=== PATIENT | female | born 1995 | race Caucasian/White ===

== ENCOUNTER 2018-07-25 22:56 | Inpatient (IN) | payer BC ==
[~2018-07-25] VITALS: Ht 157.5 cm; Wt 77.1 kg
[2018-07-25 23:09] VITALS: Ht 157.5 cm; Wt 77.1 kg
[2018-07-25 23:52] LABS: PLATELET COUNT 263 x10^3mcL (130-400)
[2018-07-25 23:53] LABS: BASOPHIL % 0 % (0-2); RED CELL DISTRIBUTION WIDTH 14.8 % (11.5-14.5)
[2018-07-26 00:09] LABS: ALBUMIN 3.6 g/dL (3.4-5.0); ALKALINE PHOSPHATASE 38 U/L (46-116); ALT/SGPT 20 U/L (14-59); AMYLASE 41 U/L (25-115); AST/SGOT 13 U/L (15-37); BILIRUBIN TOTAL 0.2 mg/dL (0.20-1.00); CALCIUM 8.5 mg/dL (8.5-10.1); CARBON DIOXIDE 25.1 mmol/L (21-32); CHLORIDE SERUM 105 mmol/L (98-107); GFR1 > 60 mL/min; GLUCOSE SERUM 98 mg/dL (74-106); LIPASE 147 IU/L (73-393); POTASSIUM SERUM 4.4 mmol/L (3.5-5.1); SODIUM SERUM 139 mmol/L (136-145); TOTAL PROTEIN, SERUM 7.2 g/dL (6.4-8.2)
[2018-07-26] MEDS ORDERED: NEXIUM40 MG PO (04:13)
[2018-07-26 04:32] LABS: CHOLESTEROL/HDL RATIO 3.5; MAGNESIUM 1.9 mg/dL (1.8-2.4); PHOSPHOROUS 2.5 mg/dL (2.5-4.9)
[2018-07-26 04:38] LABS: T3 TOTAL 1.07 ng/mL
[2018-07-26 04:44] LABS: FREE T4 0.92 ng/dL (0.76-1.46); FREE THYROXINE INDEX 2.7 ug/dL (1.4-4.5); T4(THYROXINE) 7.8 ug/dL (4.7-13.3)
[2018-07-26 04:46] VITALS: BP 106/70
[2018-07-26 06:22] LABS: PLATELET COUNT 236 x10^3mcL (130-400)
[2018-07-26 06:48] LABS: CALCIUM 7.7 mg/dL (8.5-10.1); CARBON DIOXIDE 21.9 mmol/L (21-32); CHLORIDE SERUM 105 mmol/L (98-107); CREATININE SERUM 0.9 mg/dL (0.6-1.0); GFR1 > 60 mL/min; GLUCOSE SERUM 115 mg/dL (74-106); SODIUM SERUM 138 mmol/L (136-145)
[2018-07-26 08:20] LABS: RED CELL DISTRIBUTION WIDTH 14.6 % (11.5-14.5)
[2018-07-26 08:21] LABS: BASOPHIL % 0 % (0-2)
[2018-07-26 09:54] VITALS: BP 103/62
[2018-07-26 12:15] LABS: microscopic required? NO
[2018-07-26 12:27] LABS: UA SPECIFIC GRAVITY >=1.030 (1.005-1.035); urine erythrocyte NEGATIVE (NEGATIVE)
[2018-07-26 12:43] LABS: AMPHETAMINE QUAL UR NONE DETECTED (See below)
[2018-07-26] MEDS ORDERED: ZOF4 PO (16:57)
[2018-07-26] MEDS ORDERED: LEVOFLOXACIN500 M1 PO (17:26)
[2018-07-26] MEDS ORDERED: FLA500 PO (17:27)
[2018-07-26 17:39] VITALS: BP 115/71
[2018-07-26 18:12] VITALS: BP 115/71
[2018-07-26 18:33] VITALS: BP 115/71
== END 2018-07-26 19:03 | disposition home or self-care (01) | DRG 392 ==
LOC: ED 22:56 → MU 07-26 03:37
PROVIDERS: Emergency Medicine; Internal Medicine
DX: A08.4 Viral intestinal infection, unspecified (principal); K21.9 Gastro-esophageal reflux disease without esophagitis; E66.9 Obesity, unspecified; Z68.32 Body mass index [BMI] 32.0-32.9, adult; Z71.3 Dietary counseling and surveillance
CPT/HCPCS: 84439; J2405; J2550; J2765; J7030; J7120; Q0092; Q9967